=== PATIENT | male | born 1985 | race Caucasian/White ===

== ENCOUNTER 2020-09-23 23:37 | Emergency (ER) | payer OTHER ==
[~2020-09-23] VITALS: Ht 175.3 cm; Wt 104.3 kg
[2020-09-24] MEDS ORDERED: NORCO 5-325 TA1 EAC2 PO (00:43)
[2020-09-24] MEDS ORDERED: PENICILLIN VK500 MG PO (00:43)
[2020-09-24 00:52] VITALS: BP 144/87
== END 2020-09-24 00:52 | disposition home or self-care (01) ==
LOC: M.ERS 23:37
DX: S02.5XXA Fracture of tooth (traumatic), initial encounter for closed fracture (principal); K02.9 Dental caries, unspecified; Z90.49 Acquired absence of other specified parts of digestive tract; X58.XXXA Exposure to other specified factors, initial encounter; Y93.89 Activity, other specified; Y92.89 Other specified places as the place of occurrence of the external cause; Y99.8 Other external cause status

== ENCOUNTER 2021-11-11 18:33 | Emergency (ER) | payer OTHER ==
[~2021-11-11] VITALS: Ht 175.3 cm; Wt 97.5 kg
[~2021-11-11 18:33] MED LIST: NORCO 5-325 TA1 EAC2 PO; PENICILLIN VK500 MG PO
[2021-11-11 19:16] LABS: INFLUENZA A ANTIGEN Negative (Negative); INFLUENZA B ANTIGEN Negative (Negative)
[2021-11-11] MEDS ORDERED: ZOFRAN ODT4 MG PO (19:24)
[2021-11-11] MEDS ORDERED: LOMOTIL 2.5-0.01 TAB PO (20:38)
[2021-11-11 20:50] VITALS: BP 138/87
== END 2021-11-11 20:51 | disposition home or self-care (01) ==
LOC: M.ERS 18:33
PROVIDERS: Nurse Practitioner Family
DX: U07.1 COVID-19 (principal); Z90.49 Acquired absence of other specified parts of digestive tract